=== PATIENT | female | born 1950 | race Caucasian/White ===

== ENCOUNTER → 2018-03-22 10:03 | Outpatient (CLI) | payer OTHER, SELFPAY | PROVIDERS: PCP Family Medicine; Visit Provider Family Medicine | DX: M85.852 Other specified disorders of bone density and structure, left thigh (principal); Z78.0 Asymptomatic menopausal state | CPT/HCPCS: 77080 ==

== ENCOUNTER → 2018-05-01 13:52 | Outpatient (CLI) | payer MEDICARE, OTHER, SELFPAY ==
--- NOTE | 2018-05-01 | DI.US.S_ITS ---
PROCEDURE: US PELVIC COMPLETE INDICATIONS: ADNEXAL FULLNESS TECHNIQUE: Real-time scanning was performed of the pelvic organs, with image documentation. Additional endovaginal scanning was necessary due to incomplete visualization of the adnexal and endometrial structures by transabdominal scanning. COMPARISON: None. FINDINGS: Transabdominal scanning: Limited scanning through the kidneys shows no hydronephrosis. No pathologic free abdominal or pelvic fluid. Endovaginal scanning: Uterus: Uterus is normal in size at 5.4 x 2.4 x 3.9 cm. The endometrium measures 3 mm in combined thickness. Ovaries: The right ovary surgically absent. Left ovary measures 2.1 x 0.9 x 0.8 cm. It demonstrates a normal appearance. No adnexal masses are seen. IMPRESSION: No imaging explanation is found for this patient's presenting history of adnexal fullness. Prior right oophorectomy. Dictated by: Carlos Messer M.D. on 05/01/2018 at 14:02 Approved by: Carlos Messer M.D. on 05/01/2018 at 14:04
== END ==
PROVIDERS: PCP Family Medicine; Visit Provider Family Medicine
DX: N85.8 Other specified noninflammatory disorders of uterus (principal); Z90.721 Acquired absence of ovaries, unilateral
CPT/HCPCS: 76830; 76856

== ENCOUNTER → 2018-10-09 15:02 | Outpatient (CLI) | payer MEDICARE, OTHER, SELFPAY ==
--- NOTE | 2018-10-09 | DI.MG.S_ITS ---
BILATERAL DIGITAL SCREENING MAMMOGRAM 3D/2D WITH CAD: 10/09/2018 CLINICAL: Routine screening. Family history of breast cancer. Comparison is made to exams dated: 09/13/2017 mammogram, 07/26/2016 mammogram, and 04/28/2015 mammogram - [facility]. The tissue of both breasts is heterogeneously dense. This may lower the sensitivity of mammography. Current study was also evaluated with a Computer Aided Detection (CAD) system. No significant masses, calcifications, or other findings are seen in either breast. There has been no significant interval change. IMPRESSION: NEGATIVE There is no mammographic evidence of malignancy. A 1 year screening mammogram is recommended. This exam was interpreted at Station ID: [id number]. NOTE: For mammograms, a report in lay terms will be sent to the patient. Approximately 15% of breast malignancies will not be visualized mammographically. In the management of a palpable breast mass, a negative mammogram must not discourage biopsy of a clinically suspicious lesion. Electronically Signed By: Jose butler/tono:10/09/2018 17:11:11 letter sent: Normal Exam ACR BI-RADS Category 1: Negative 3341F
== END ==
PROVIDERS: PCP Family Medicine; Visit Provider Family Medicine
DX: Z12.31 Encounter for screening mammogram for malignant neoplasm of breast (principal); Z80.3 Family history of malignant neoplasm of breast
CPT/HCPCS: 77063; 77067

== ENCOUNTER 2019-06-05 07:00 | Day surgery (SDC) | payer MEDICARE, OTHER, SELFPAY ==
[2019-06-05] MEDS: PROPARACAINE 0.5% OPHTH SOL 2 DROPS EYE-OP (07:40)
[2019-06-05] MEDS: CATARACT EYE COMPOUND (10 DROPS/SYRINGE) 3 DROPS EYE-OP (07:44)
[2019-06-05 07:46] VITALS: BP 138/84; PULSE 73; RESP 15; TEMP 36.2; BMI 23.6
--- NOTE | 2019-06-05 08:38 | PM.PREOP ---
Pre-operative Note Interval Note History & Physical reviewed/Exam performed by Physician: No Changes to H&P: No
--- NOTE | 2019-06-05 08:38 | PM.OP.1 ---
Operative Date/Time/Diagnoses Pre-op diagnosis: Nuclear cataract right eye Procedure & Clinicians Procedure: Cataract Surgery Same procedure as scheduled: Yes Surgeon: Glenn Panchal Anesthesia Type: MAC +/- and Sedation Operative Notes Procedure in detail: Patient brought to the operating suite. Tetracaine drops placed in the right eye. Patient was prepped and draped in sterile manner. Wire lid speculum was placed in the eye. Betadine drops were placed on the eye. This was irrigated. Lidocaine jelly was placed on the eye. A paracentesis port was created with a side-port blade. 0.1 mL 1% preservative free lidocaine was injected into the anterior chamber. The anterior chamber was deepened with viscoelastic. 2.6 mm keratome was used to create a temporal clear corneal incision. Cystotome and Utrata forceps were used to create continuous tear capsulorrhexis. Balanced salt solution was used to hydro dissect the nucleus. The phacoemulsification handpiece was inserted and the nucleus was removed using the stop and chop technique. The irrigation aspiration handpiece was inserted and the remaining cortex was removed. Anterior chamber was deepened with viscoelastic. An Hood ZCB00 intraocular lens with a power of 24.0 was injected into the capsular bag. Irrigation aspiration handpiece was inserted and the remaining viscoelastic was removed. Incision was hydrated with balanced salt solution and found to be leak free with pressure with Weck-Rosa sponges. 0.1 mL Vigamox injected anterior chamber. 0.3 mL Kenalog 10 mg was injected subconjunctivally. Lid speculum was removed. The patient left the operating room in excellent condition. Complications: none Post-operative Condition: stable Disposition: same day surgery
[2019-06-05] MEDS: LIDOCAINE JELLY 2% 5 ML 1 APPLIC TOP (08:56)
[2019-06-05] MEDS: CHONDROIDTIN/SOD HYALURONATE 1.05 ML SYRINGE INTRAOCULA (08:56)
[2019-06-05] MEDS: PHENYLEPHRINE/LIDOCAINE VIAL (OR) 0.2 ML EYE-OP (08:57)
[2019-06-05] MEDS: TETRACAINE 0.5% OPHTH DROPS 4 ML 2 DROPS EYE-OP (08:57)
[2019-06-05] MEDS: MOXIFLOXACIN INJ 5 MG/ML VIAL EYE-OP (08:57)
[2019-06-05] MEDS: BALANCED SALT IRRIG SOLN NO.2 500 ML, EPINEPHrine 1 MG IRR (08:58)
[2019-06-05] MEDS: TRIAMCINOLONE 50 MG/5 ML VIAL INJ (08:58)
[2019-06-05 09:11] VITALS: BP 146/81; PULSE 66; RESP 16; TEMP 36.4; O2SAT 96
== END 2019-06-05 09:23 | disposition home or self-care (01) ==
PROVIDERS: PCP Family Medicine; Visit Provider Ophthalmology
PROC: (CPT 66984; principal; 2019-06-05 08:45)
DX: H25.11 Age-related nuclear cataract, right eye (principal)
CPT/HCPCS: 66984; J0171; J2250; J3010; J3301

== ENCOUNTER 2019-06-12 06:27 | Day surgery (SDC) | payer MEDICARE, OTHER, SELFPAY ==
[2019-06-12 07:06] VITALS: BP 143/82; PULSE 68; RESP 16; TEMP 36.3; O2SAT 96; BMI 23.5
[2019-06-12] MEDS: PROPARACAINE 0.5% OPHTH SOL 2 DROPS EYE-OP (07:48)
[2019-06-12] MEDS: CATARACT EYE COMPOUND (10 DROPS/SYRINGE) 3 DROPS EYE-OP (07:49)
--- NOTE | 2019-06-12 08:04 | PM.PREOP ---
Pre-operative Note Interval Note History & Physical reviewed/Exam performed by Physician: No Changes to H&P: No
--- NOTE | 2019-06-12 08:04 | PM.OP.1 ---
Operative Date/Time/Diagnoses Pre-op diagnosis: Nuclear Cataract Left eye Post-op diagnosis: same Procedure & Clinicians Surgeon: Glenn Panchal Anesthesia Type: MAC +/- and Sedation Operative Notes Procedure in detail: Patient brought to the operating suite. Tetracaine drops placed in the left eye. Patient was prepped and draped in sterile manner. Wire lid speculum was placed in the eye. Betadine drops were placed on the eye. This was irrigated. Lidocaine jelly was placed on the eye. A paracentesis port was created with a side-port blade. 0.1 mL 1% preservative free lidocaine was injected into the anterior chamber. The anterior chamber was deepened with viscoelastic. 2.6 mm keratome was used to create a temporal clear corneal incision. Cystotome and Utrata forceps were used to create continuous tear capsulorrhexis. Balanced salt solution was used to hydro dissect the nucleus. The phacoemulsification handpiece was inserted and the nucleus was removed using the stop and chop technique. The irrigation aspiration handpiece was inserted and the remaining cortex was removed. Anterior chamber was deepened with viscoelastic. An Hood ZCB00 intraocular lens with a power of 24.0 was injected into the capsular bag. Irrigation aspiration handpiece was inserted and the remaining viscoelastic was removed. Incision was hydrated with balanced salt solution and found to be leak free with pressure with Weck-Rosa sponges. 0.1 mL Vigamox injected anterior chamber. 0.3 mL Kenalog 10 mg was injected subconjunctivally. Lid speculum was removed. The patient left the operating room in excellent condition. Complications: none Post-operative Condition: stable Disposition: same day surgery
[2019-06-12] MEDS: MOXIFLOXACIN INJ 5 MG/ML VIAL EYE-OP (08:20)
[2019-06-12] MEDS: PHENYLEPHRINE/LIDOCAINE VIAL (OR) 0.2 ML EYE-OP (08:20)
[2019-06-12] MEDS: TRIAMCINOLONE 50 MG/5 ML VIAL INJ (08:21)
[2019-06-12] MEDS: CHONDROIDTIN/SOD HYALURONATE 1.05 ML SYRINGE INTRAOCULA (08:21)
[2019-06-12] MEDS: LIDOCAINE JELLY 2% 5 ML 1 APPLIC TOP (08:21)
[2019-06-12] MEDS: BALANCED SALT IRRIG SOLN NO.2 500 ML, EPINEPHrine 1 MG IRR (08:21)
[2019-06-12] MEDS: TETRACAINE 0.5% OPHTH DROPS 4 ML 2 DROPS EYE-OP (08:22)
[2019-06-12 08:31] VITALS: BP 122/81; PULSE 64; RESP 15; TEMP 36.6; O2SAT 98
== END 2019-06-12 08:42 | disposition home or self-care (01) ==
PROVIDERS: PCP Family Medicine; Visit Provider Ophthalmology
PROC: (CPT 66984; principal; 2019-06-12 07:45)
DX: H25.12 Age-related nuclear cataract, left eye (principal); F32.9 Major depressive disorder, single episode, unspecified
CPT/HCPCS: 66984; J0171; J2250; J3010; J3301

== ENCOUNTER → 2020-01-11 09:43 | Outpatient (CLI) | payer MEDICARE, OTHER, SELFPAY ==
[2020-01-12 21:05] LABS: COVID19 Sendout Not Detected (Not Detect)
== END ==
PROVIDERS: PCP Family Medicine; Visit Provider Nurse Practitioner
DX: Z01.812 Encounter for preprocedural laboratory examination (principal)
CPT/HCPCS: 87635

== ENCOUNTER 2020-01-14 13:28 | Day surgery (SDC) | payer MEDICARE, OTHER, SELFPAY ==
--- NOTE | 2020-01-14 | PATH_ITS ---
[facility] Accession Number: [id number] . 01 Material submitted: . PART A: colon - ASCENDING COLON POLYP PART B: sigmoid colon - SIGMOID POLYP . 01 Clinical history: . A: ASCENDING COLON POLYP 2MM . 02 Diagnosis: A. Ascending Colon Polyp: Tubular adenoma. . B. Sigmoid Polyp: Hyperplastic polyp. MRV 01/16/2020 1001 Local . 02 Electronically signed: . Francia Tineo MD, Pathologist NPI- [id number] . 01 Gross description: . Part A: ASCENDING COLON POLYP: Received in formalin is 1 fragment(s) of downey, soft tissue measuring 0.4 x 0.2 x 0.1 cm submitted entirely in 1 cassette(s) Part B: SIGMOID POLYP: Received in formalin is 1 fragment(s) of downey, soft tissue measuring 0.3 x 0.3 x 0.2 cm submitted entirely in 1 cassette(s) /QBJ 01/15/2020 0719 Local . 02 Pathologist provided ICD-10: K63.5, Z12.11 . 02 CPT . 168144, 146399 Performed at: 01 [facility] [address] [facility], [place], [place] [id number] MD Danial Crane MD Phone: [phone] Performed at: [facility] [address] [place], [place] [id number] MD Ignacia Nevarez MD Phone: [phone]
--- NOTE | 2020-01-14 12:32 | PM.HP.1 ---
History of Present Illness History of Present Illness Date Patient Seen: 01/14/20 Chief complaint: Colonoscopy Narrative: 69 year old female comes in today for consideration of a screening colonoscopy. Last colonoscopy on 09/03/2013 indicative for history of polyps. Two colon polyps found at hepatic flexure and descending colon, pathology not available at time dictation. Prior colonoscopy on 07/07/07 significant for a hyperplastic polyp in the sigmoid colon. There have been no lower GI symptoms suggesting disease such as change in bowel habits, bleeding, abdominal pain or anemia. Patient does have a family history of colon cancer. Overall health issues have been stable, including no major cardiac events for at least 6 weeks. PCP: Dr. Leslie Past medical history: Hypertension Macrocytic anemia Osteopenia Hepatic hemangioma Allergic rhinitis Insomnia Depression/anxiety History of colon polyps Past surgical history: Tonsillectomy and adenoidectomy, 1965 Unilateral salpingo oophorectomy secondary to cyst, 1980 Family history: Colon cancer, breast cancer Social history: , retired. Patient History Family & Social History Social History: household members spouse Meds Home Medications and Allergies Home Medications Medication Instructions Recorded Confirmed Type escitalopram oxalate [Lexapro] 20 mg PO DAILY 06/05/19 01/14/20 History ibuprofen [Advil] 100 mg PO PRN PRN 06/05/19 01/14/20 History trazodone 25 mg PO BEDTIME PRN 06/05/19 01/14/20 History loratadine [Claritin] 10 mg PO DAILY PRN 01/14/20 01/14/20 History Allergies Allergy/AdvReac Type Severity Reaction Status Date / Time No Known Drug Allergies Allergy Verified 01/14/20 13:42 Review of Systems Review of Systems ROS: Yes All systems reviewed with the patient and are negative except as otherwise documented Exam Narrative Exam Narrative: GENERAL: Alert and oriented, appearing stated age and in no acute distress. HEENT: Head normocephalic/atraumatic. Pupils equal, round, and reactive to light and accomodation. Extraocular muscles intact. Tympanic membranes clear. Nasal mucosa moist, septum midline. Oral mucosa moist, no lesions. Neck soft and supple, no lymphadenopathy. LUNGS: Clear to ausculation bilaterally, no wheezes, rhonchi or rales. CV: Normal S1 and S2 with regular rate and rhythm, no audible murmurs, rubs or gallops. ABDOMEN: Soft, non-tender, non-distended, no organomegaly. Positive bowel sounds. EXTREMITIES: No clubbing, cyanosis, or edema. NEURO: Cranial nerves II through XII grossly intact, no focal deficits. PSYCH: Alert and oriented x 3. SKIN: No concerning lesions. Assessment & Plan Assessment & Plan narrative: 1. History of colon polyps 2. Family history of colon cancer 3. Screening for colon cancer Plan for colonoscopy. The nature and character of the procedure as well as anticipated results were discussed. The possibility of not completing the procedure was also discussed. Possible complications including aspiration pneumonia, bleeding, perforation and reaction to medications either for sedation or preparation and missed lesions were discussed. Questions were answered and proceeding to the colonoscopy was elected. Informed consent signed. I sincerely appreciate the referral allowing me to participate in this patient's care. Please contact me with any questions or concerns.
--- NOTE | 2020-01-14 12:38 | PM.OP.ENDO ---
Operative Date/Time/Diagnoses Date of procedure: 01/14/20 Pre-op diagnosis: 1. History of colon polyps 2. Family history of colon cancer 3. Screening for colon cancer Post-op diagnosis: other (1. Ascending polyp x1, 2 mm, removed with cold biopsy forceps and hemaclip placed x2 with excellent hemostasis, 2. Sigmoid polyp x1, 2 mm, removed with cold biopsy forceps) Procedure & Clinicians Study performed: Colonoscopy Indications: 1. History of colon polyps 2. Family history of colon cancer 3. Screening for colon cancer Surgeon: Dea Moore Procedure Notes SCOAP/Timeout: 2:49 p.m. Procedure in detail: ENDOSCOPIST: Dea Moore MD Sedation RN: Amrita Raya RN Sedation start time: 2:54 p.m. Sedation end time: 3:30 p.m. PROCEDURE: Colonoscopy with cold biopsy and hemoclip placement x2 INDICATIONS: 1. History of colon polyps 2. Family history of colon cancer 3. Screening for colon cancer MEDICATION: Levsin 0.125 mg sublingual, incremental doses of Versed and fentanyl until appropriate level sedation achieved. ASA CLASS: 2 CECAL WITHDRAWAL TIME: 17 minutes COMPLICATIONS: None. EXTENT OF PROCEDURE: Cecum. QUALITY OF PREP: Good with portions of liquid stool. PROCEDURE: Prior to insertion of the colonoscope, a digital rectal examination was accomplished with circumferential palpation of the distal rectal mucosa without significant findings being noted. The high-definition pediatric colonoscope was passed into the rectum in the usual fashion and advanced over to the cecum with difficulty due to tortuosity and redundant colon. The ileocecal valve, appendiceal stoma, and medial wall all could be inspected and no abnormalities were seen. ASCENDING COLON: As the colonoscope was withdrawn, care was taken to expose and inspect the haustral folds and a 2 mm polyp was removed with cold biopsy forceps. Hemoclip x2 placed with excellent hemostasis. HEPATIC FLEXURE: Normal no polyps, diverticula or other abnormalities. TRANSVERSE COLON: Normal no polyps, diverticula or other abnormalities. DESCENDING COLON: Normal no polyps, diverticula or other abnormalities. SIGMOID COLON: 2 mm polyp was seen and removed with cold biopsy forceps. Otherwise, normal, no polyps, diverticula or other abnormalities. RECTUM: Normal. J maneuver was produced. There was no significant perianal disease. The J maneuver was broken. The remainder of the rectum was inspected and there was no external hemorrhoid disease. The scope was withdrawn. IMPRESSION: 1. Ascending polyp x1, 2 mm, removed with cold biopsy forceps, hemoclip placed x2 with excellent hemostasis. 2. Sigmoid polyp x1, 2 mm, removed with cold biopsy forceps PLAN: 1. Follow-up in clinic status post pathology results. The possibility of a missed lesion including a malignancy has been discussed with the patient previously. Potential alarm symptoms have been discussed and should be reported immediately. Complications: none Post-procedure Recommendations: Will call with biopsy results Follow up: weeks (2) Disposition: PACU
[2020-01-14] MEDS: LACTATED RINGERS 1,000 ML 200 ML IV (13:41)
[2020-01-14] MEDS: HYOSCYAMINE 0.125 MG TABLET PO (13:41)
[2020-01-14 13:45] VITALS: BP 152/85; PULSE 74; RESP 16; TEMP 36; O2SAT 97; BMI 23.0
[2020-01-14] MEDS: MIDAZOLAM 5 MG/5 ML VIAL IV ×4 (14:50→15:01)
[2020-01-14] MEDS: fentaNYL 250 MCG/5 ML INJ IV ×3 (14:50→15:01)
[2020-01-14 15:41] VITALS: BP 135/80; PULSE 64; RESP 16; TEMP 37.1; O2SAT 97
[2020-01-14 15:47] VITALS: BP 141/74; PULSE 69; RESP 24; O2SAT 97
--- NOTE | 2020-01-14 15:47 | SUR.PHASEI ---
to PACU awake, oriented, drowsy. Turned to left side to help pass flatus. Juice given.
[2020-01-14 15:50] VITALS: BP 131/77; PULSE 67; RESP 17; O2SAT 97
[2020-01-14 15:58] VITALS: BP 120/75; PULSE 66; RESP 16; TEMP 36.7; O2SAT 96
== END 2020-01-14 16:07 | disposition home or self-care (01) ==
PROVIDERS: PCP Family Medicine; Referring Provider Student in an Organized Health Care Education/Training Program; Visit Provider Student in an Organized Health Care Education/Training Program
PROC: 0DJD8ZZ Inspection of Lower Intestinal Tract, Via Natural or Artificial Opening Endoscopic (ICD-10-PCS; CPT 45378; principal; 2020-01-14 14:30)
DX: Z12.11 Encounter for screening for malignant neoplasm of colon (principal); Z86.010 Personal history of colon polyps; Z80.0 Family history of malignant neoplasm of digestive organs; D12.2 Benign neoplasm of ascending colon
CPT/HCPCS: 45380; J2250; J3010

== ENCOUNTER → 2020-11-12 16:54 | Outpatient (CLI) | payer MEDICARE, OTHER, SELFPAY ==
--- NOTE | 2020-11-12 | DI.MG.S_ITS ---
BILATERAL DIGITAL SCREENING MAMMOGRAM 3D/2D WITH CAD: 11/12/2020 CLINICAL: Routine screening. Family history of breast cancer. Comparison is made to exams dated: 10/09/2018 mammogram, 09/13/2017 mammogram, and 07/26/2016 mammogram - [facility]. The tissue of both breasts is heterogeneously dense. This may lower the sensitivity of mammography. Current study was also evaluated with a Computer Aided Detection (CAD) system. No significant masses, calcifications, or other findings are seen in either breast. There has been no significant interval change. IMPRESSION: NEGATIVE There is no mammographic evidence of malignancy. A 1 year screening mammogram is recommended. This exam was interpreted at Station ID: [id number]. NOTE: For mammograms, a report in lay terms will be sent to the patient. Approximately 15% of breast malignancies will not be visualized mammographically. In the management of a palpable breast mass, a negative mammogram must not discourage biopsy of a clinically suspicious lesion. Electronically Signed By: Mike Turner acr/tono:11/12/2020 17:33:23 letter sent: Normal Exam ACR BI-RADS Category 1: Negative 3341F
== END ==
PROVIDERS: PCP Family Medicine; Referring Provider Family Medicine; Visit Provider Family Medicine
DX: Z12.31 Encounter for screening mammogram for malignant neoplasm of breast (principal); Z80.3 Family history of malignant neoplasm of breast
CPT/HCPCS: 77063; 77067

== ENCOUNTER → 2021-07-09 14:46 | Outpatient (CLI) | payer MEDICARE, OTHER, SELFPAY ==
--- NOTE | 2021-07-09 14:49 | DI.RAD.S_ITS ---
PROCEDURE: XR DEXA AXIAL SKELETON INDICATIONS: Other specified disorders of bone density and stru COMPARISON: [facility], CR, XR DEXA AXIAL SKELETON, 03/22/2018, 10:50. FINDINGS: This blank DEXA report has been sent in error by the PACS system. The correct and complete report will be forthcoming in 1-2 days. Thank you for your patience and understanding. Dictated by: Alexander Solis M.D. on 07/09/2021 at 16:53 Approved by: Alexander Solis M.D. on 07/20/2021 at 14:00
== END ==
PROVIDERS: PCP Family Medicine; Referring Provider Family Medicine; Visit Provider Family Medicine
DX: M85.89 Other specified disorders of bone density and structure, multiple sites (principal)
CPT/HCPCS: 77080

== ENCOUNTER → 2021-12-16 10:04 | Outpatient (CLI) | payer MEDICARE, OTHER, SELFPAY ==
--- NOTE | 2021-12-16 | DI.MG.S_ITS ---
BILATERAL DIGITAL SCREENING MAMMOGRAM 3D/2D WITH CAD: 12/16/2021 CLINICAL: Routine screening. Family history of breast cancer. Comparison is made to exams dated: 11/12/2020 mammogram, 10/09/2018 mammogram, and 09/13/2017 mammogram - [facility]. The tissue of both breasts is heterogeneously dense. This may lower the sensitivity of mammography. Current study was also evaluated with a Computer Aided Detection (CAD) system. No significant masses, calcifications, or other findings are seen in either breast. There has been no significant interval change. IMPRESSION: NEGATIVE There is no mammographic evidence of malignancy. A 1 year screening mammogram is recommended. This exam was interpreted at Station ID: [id number]. NOTE: For mammograms, a report in lay terms will be sent to the patient. Approximately 15% of breast malignancies will not be visualized mammographically. In the management of a palpable breast mass, a negative mammogram must not discourage biopsy of a clinically suspicious lesion. Electronically Signed By: Reggie amin/tono:12/16/2021 10:44:21 letter sent: Normal Exam ACR BI-RADS Category 1: Negative 3341F
== END ==
PROVIDERS: PCP Family Medicine; Referring Provider Family Medicine; Visit Provider Family Medicine
DX: Z12.31 Encounter for screening mammogram for malignant neoplasm of breast (principal); Z80.3 Family history of malignant neoplasm of breast
CPT/HCPCS: 77063; 77067

== ENCOUNTER → 2023-03-02 11:47 | Outpatient (CLI) | payer MEDICARE, OTHER, SELFPAY ==
--- NOTE | 2023-03-02 | DI.MG.S_ITS ---
BILATERAL DIGITAL SCREENING MAMMOGRAM 3D/2D WITH CAD: 03/02/2023 CLINICAL: Routine screening. Family history of breast cancer. Comparison is made to exams dated: 12/16/2021 mammogram, 11/12/2020 mammogram, and 10/09/2018 mammogram - [facility]. Both breasts are heterogeneously dense, which may obscure small masses (category c / 51-75% glandular tissue). Current study was also evaluated with a Computer Aided Detection (CAD) system. No significant masses, calcifications, or other findings are seen in either breast. There has been no significant interval change. IMPRESSION: NEGATIVE There is no mammographic evidence of malignancy. A 1 year screening mammogram is recommended. Based on the Tyrer Cuzick model (a risk assessment model) the patient's lifetime risk is 14.9% and her 10 year risk is 9.6%. According to the ACR, ACS, and NCCN guidelines, an annual breast MRI exam along with mammogram is recommended if the patient's lifetime risk is 20% or greater. This exam was interpreted at Station ID: [id number]. NOTE: For mammograms, a report in lay terms will be sent to the patient. Approximately 15% of breast malignancies will not be visualized mammographically. In the management of a palpable breast mass, a negative mammogram must not discourage biopsy of a clinically suspicious lesion. Electronically Signed By: Jose butler/tono:03/06/2023 14:15:48 letter sent: Normal Exam ACR BI-RADS Category 1: Negative 3341F
== END ==
PROVIDERS: PCP Family Medicine; Referring Provider Family Medicine; Visit Provider Family Medicine
DX: Z12.31 Encounter for screening mammogram for malignant neoplasm of breast (principal)
CPT/HCPCS: 77063; 77067

== ENCOUNTER → 2023-09-12 11:16 | Outpatient (CLI) | payer MEDICARE, OTHER, SELFPAY ==
--- NOTE | 2023-09-12 11:18 | DI.RAD.S_ITS ---
Bone Density Report Name: MARZENA SCHOFIELD Age: 72 Sex: Female Ethnicity: White Date of : 1950 Indication: osteopenia; Referring Provider: LEVAR MURRY Study: Bone densitometry was performed. Exam Date: September 12, 2023 Accession number: [id number] Bone Density: Region BMD T-score Z-score Classification AP Spine(L1, L2, L3) 0.845 -1.6 0.5 Osteopenia Femoral Neck (Left) 0.599 -2.3 -0.4 Osteopenia Total Hip (Left) 0.800 -1.2 0.4 Osteopenia Femoral Neck (Right) 0.614 -2.1 -0.3 Osteopenia Total Hip (Right) 0.770 -1.4 0.1 Osteopenia Total Hip Mean 0.785 -1.3 0.3 Osteopenia World Health Organization criteria for BMD impression classify patients as: Normal (T-score at or above -1.0), Osteopenia (T-score between -1.0 and -2.5), or Osteoporosis (T-score at or below -2.5). 10-year Fracture Risk(1): Major Osteoporotic Fracture 16% Hip Fracture 4.6% Reported Risk Factors: [place] (), Neck BMD=0.599, BMI=24.0, alcohol use (1) FRAX(R) Version 3.08. Fracture probability calculated for an untreated patient. Fracture probability may be lower if the patient has received treatment. Previous Exams: -- Region Exam Age BMD T-score BMD Change BMD Change Date g/cm2 vs Baseline vs Previous -- AP Spine (L1-L3) 09/12/2023 72 0.845 -1.6 -0.007 (-0.8%)# -0.184 (-17.9%)# 07/09/2021 70 1.029 0.1 0.177 (20.8%)* 0.043 (4.4%)* 03/22/2018 67 0.986 -0.3 0.134 (15.7%)* 0.064 (6.9%)* 12/23/2015 65 0.922 -0.9 0.070 (8.2%)* -0.050 (-5.1%)* 07/20/2013 62 0.972 -0.4 0.119 (14.0%)* 0.141 (16.9%)* 11/09/2010 59 0.831 -1.7 -0.021 (-2.5%) -0.021 (-2.5%) 07/19/2008 57 0.852 -1.5 Total Hip(Left) 09/12/2023 72 0.800 -1.2 -0.018 (-2.2%)# 0.002 (0.3%)# 07/09/2021 70 0.798 -1.2 -0.021 (-2.5%) -0.031 (-3.8%)* 03/22/2018 67 0.829 -0.9 0.010 (1.3%) -0.031 (-3.6%)* 12/23/2015 65 0.860 -0.7 0.042 (5.1%)* 0.046 (5.6%)* 07/20/2013 62 0.814 -1.0 -0.004 (-0.5%) -0.021 (-2.5%) 11/09/2010 59 0.835 -0.9 0.017 (2.0%) 0.017 (2.0%) 07/19/2008 57 0.819 -1.0 Total Hip(Right) 09/12/2023 72 0.770 -1.4 -0.051 (-6.2%)# -0.014 (-1.8%)# 07/09/2021 70 0.785 -1.3 -0.036 (-4.4%)* -0.056 (-6.6%)* 03/22/2018 67 0.840 -0.8 0.019 (2.3%) 0.034 (4.2%)* 12/23/2015 65 0.806 -1.1 -0.015 (-1.8%) -0.031 (-3.7%)* 07/20/2013 62 0.837 -0.9 0.016 (1.9%) -0.004 (-0.5%) 11/09/2010 59 0.841 -0.8 0.020 (2.4%) 0.020 (2.4%) 07/19/2008 57 0.821 -1.0 -- *Denotes significance at 95% confidence level, LSC for AP Spine = 0.022 g/cm2, LSC for Total Hip = 0.027 g/cm2 Rate of change results reflect vertebral levels common to all scans # Denotes dissimilar scan types or analysis methods Impression: The patient has low bone mass, based on the Left Femoral Neck T-score. The patient has an estimated ten-year risk of hip fracture of 4.6% and an estimated ten-year risk of major fracture of 16%, based on the WHO FRAX algorithm. The patient has risk factors, including: excessive alcohol use. No significant bone loss was observed. Discussion: BONE DENSITY IS LOW AT ONE OR MORE SKELETAL SITES. THE PATIENT'S BMD AND CLINICAL RISK FACTORS CONTRIBUTE TO THIS PATIENT'S INCREASED RISK OF FRACTURE. This patient's lowest T-score is low at one or more skeletal sites. It meets the World Health Organization's (WHO) criteria for low bone mass (T-score between -1.0 and -2.5). The patient's 10-year risk of hip fracture as calculated by FRAX exceeds the threshold where pharmacological therapy is recommended by the National Osteoporosis Foundation (NOF). However, all treatment decisions require clinical judgment and consideration of individual patient factors, including patient preferences, comorbidities, previous drug use, risk factors not captured in the FRAX model (e.g., frailty, falls, vitamin D deficiency, increased bone turnover, interval significant decline in bone density) and possible under or overestimation of fracture risk by FRAX. The patient should follow a healthful lifestyle (good nutrition with adequate calcium and vitamin D, and appropriate weight-bearing exercise). Follow-Up: Consider a repeat BMD and Vertebral Fracture Assessment (VFA) exam in 2 years or sooner if medically necessary, to reassess this patient's status. Reported by: CAMILA WHITE M.D. on 09/12/2023 11:41:00 AM.
== END ==
LOC: RAD 11:17
PROVIDERS: PCP Family Medicine; Referring Provider Family Medicine; Visit Provider Family Medicine
DX: Z78.0 Asymptomatic menopausal state (principal); M85.852 Other specified disorders of bone density and structure, left thigh
CPT/HCPCS: 77080

== ENCOUNTER 2023-09-24 19:38 | Emergency (ER) | payer MEDICARE, OTHER, SELFPAY ==
[2023-09-24 19:41] VITALS: BP 156/70; PULSE 75; RESP 18; TEMP 36.4; O2SAT 99; BMI 24.0
--- NOTE | 2023-09-24 19:42 | ED.FALL ---
HPI - Fall General Chief Complaint: Fall Stated Complaint: fell/head puncture wound Time Seen by Provider: 09/24/23 19:41 Source: patient Mode of arrival: Ambulatory Limitations: no limitations History of Present Illness HPI Narrative: 72-year-old female with history of hypertension, dyslipidemia and chronic alcohol use who presents with complaint of fall. Patient had a witnessed fall by her family they note that she is intoxicated this evening and had extra alcohol. She hit her on the side of a [place] countertop and they believe her arm on a cabinet or book shelf. There was no loss of consciousness reported. Patient has not been altered from what she was before. She does have a lack adjacent to her ear. And has quite a bit of swelling and bruising over the forearm. Patient states other than the bruising on her arm she feels fine. She denies headache, neck pain, no back pain, no chest pain or shortness of breath. She has not had any nausea or vomiting this evening. No loss of bowel or bladder control. She has been able to ambulate. Patient states she does take medication for blood pressure and cholesterol. She does not believe she takes any blood thinners. She is unsure of last tetanus, sister believes it was proximally 15 years ago. No known drug allergies. No prior surgeries. Denies regular tobacco use, drinks 3-5 alcoholic drinks daily, no recreational drugs. She is accompanied by her sister. Related Data Home Medications Medication Instructions Recorded Confirmed escitalopram oxalate 20 mg tablet 20 mg PO DAILY 06/05/19 01/14/20 (Lexapro) ibuprofen 100 mg tablet (Advil) 100 mg PO PRN PRN Pain, Mild 06/05/19 01/14/20 trazodone 50 mg tablet 25 mg PO BEDTIME PRN Sleep 06/05/19 01/14/20 loratadine 10 mg tablet (Claritin) 10 mg PO DAILY PRN allergies 01/14/20 01/14/20 Allergies Allergy/AdvReac Type Severity Reaction Status Date / Time No Known Drug Allergies Allergy Verified 01/14/20 13:42 Review of Systems Review of Systems ROS Unobtainable: All systems reviewed & are unremarkable except as noted in HPI and below Patient History Social History household members: spouse Smoking Status: Never smoker alcohol intake: current Smoking Status: Never smoker alcohol intake frequency: 0-2 drinks per day Substance Use Type: does not use Exam Narrative Exam Narrative: GEN: Patient appears in mild distress. HEAD: No evidence of trauma, no raccoon/Egan sign. NECK: Nontender, painless range of motion, trachea midline Positive Nexus criteria, this is negative line tenderness, distracting injury, altered mental status, neuro deficit, positive for recent EtOH. EYES: PERRLA, EOMI ENT: External inspection normal except for a laceration just anterior to the upper corner of the ear on the right, is proximally 1 cm slightly stellate does not gape unless there is traction,, trachea is midline, TM's are normal no hemotypanum, Nares are clear, no septal hematoma, no dental or oral injury, airway is normal and with normal occlusion, No bony tenderness RESP: Chest is nontender and has symmetric movement, no ecchymosis, breath sounds are normal no crackles, wheezes or rales CVS: Heart sounds are normal, no murmur noted, No JVD. ABG/GI: Nontender, soft, normal bowel sounds, no distention, no organomegaly, pelvic rock is negative NEURO: Oriented AOx3, neuro is grossly intact, sensation and motor is normal all 4 extremities moving, cranial nerves II through XII are intact, GCS is 15 PSYCH: Normal mood and affect SKIN: Intact, warm and dry, no crepitus and without decubitus BACK: No CVA tenderness, no vertebral tenderness, no step-off's, no crepitus EXT: Patient has not abrasion with ecchymosis and appears to be hematoma of the right forearm more proximal. Patient has full range of motion nontender to bony tenderness. 2+ radial pulse with cap refill less than 2 seconds in all 5 fingers. Hips are nontender, no pedal edema, normal color and temperature, normal range of motion of extremities with normal tendon exam, 2+ pulses in all four extremities Initial Vital Signs Initial Vital Signs: Vital Signs Temperature 97.5 F L 09/24/23 19:41 Pulse Rate 75 09/24/23 19:41 Respiratory Rate 18 09/24/23 19:41 Blood Pressure 156/70 H 09/24/23 19:41 Pulse Oximetry 99 09/24/23 19:41 Oxygen Delivery Method Room Air 09/24/23 19:41 Procedures Laceration Repair Laceration 1: Time of procedure: 21:08 Site: face Side (If applicable): right Size (cm): 1 Description: stellate, irregular and clean Depth: simple, single layer Local Anesthetic: lidocaine 2% Amount of anesthesia used (mL): 2 Pre-repair: wound explored, irrigated extensively and deep structures intact Skin layer closed with: vicryl Skin layer suture size: 5-0 Number of sutures: 5 Technique: simple, interrupted Course Orders Ordered: ED Orders 09/24/23 19:50 XR forearm RT 2V Stat 09/24/23 19:52 CT cervical spine wo con Stat CT head/brain wo con Stat Discontinued Medications Diphtheria/Tetanus/Acell Pertussis (Tet,Diph,Pertuss(Acell),Vac/Pf 0.5 Ml Syringe) 0.5 ml IM .ONCE ONE Stop: 09/24/23 20:31 Last Admin: 09/24/23 20:48 Dose: 0.5 ml Documented By: KD Vital Signs Vital signs: Vital Signs - 8 hr 09/24/23 19:41 09/24/23 21:22 Temperature 97.5 F L Pulse Rate 75 72 Respiratory Rate 18 18 Blood Pressure 156/70 H 110/57 L Pulse Oximetry 99 98 Oxygen Delivery Method Room Air Room Air MDM - Fall Imaging Data CT scan - head: Radiologist's Impression: Jayda Avendano??72??F??1950 ? Allergy/Adv: No Known Drug Allergies Close Head CT (Signed) Ray Michel - 09/24/[address] (Signed) Ray Michel - 09/24/23 Forearm X-Ray (Signed) Ray Michel - 09/24/23 Bone Densitometry (Signed) Reggie Emery - 09/12/23 Mammogram Screening (Signed) Jose Ott - 03/02/23 Mammogram Screening (Signed) Reggie Emery - 12/16/21 Bone Densitometry (Signed) Alexander Solis - 07/09/21 Mammogram Screening (Signed) Mike Turner - 11/12/20 Telemetry Strips 01/14/20 Mammogram Screening (Signed) Jose Ott - 10/09/18 Pelvis Ultrasound (Signed) Carlos Messer - 11/05/18 Launch?Image [address] [address] [address] Scan Report Signed Patient: Jayda Avendano MR#: [id number] : 1950 Acct:[id number] Age/Sex: 72 / F Date of Service: 09/24/23 Loc: ED Accession Number: [id number] Procedure: CT head/brain wo con Ordering Provider: Winsome Cid D.O. PROCEDURE: CT HEAD/BRAIN WO CON INDICATIONS: fall/hit head TECHNIQUE: Noncontrast 4.5 mm thick angled axial sections acquired from the foramen magnum to the vertex, with coronal and sagittal reformats. For radiation dose reduction, the following was used: automated exposure control, adjustment of mA and/or kV according to patient size. COMPARISON: None. FINDINGS: Image quality: Diagnostic. CSF spaces: Basal cisterns are patent. No extra-axial fluid collections. Ventricles are normal in size and shape. Brain: No midline shift. No intracranial masses or hemorrhage. Stewart-white matter interface is normal. Skull and face: Calvarium and visualized facial bones are intact, without suspicious lesions. Sinuses: Visualized sinuses and mastoids are clear. IMPRESSION: No acute intracranial pathology. Dictated by: Ray Michel M.D. on 09/24/2023 at 20:49 Approved by: Ray Michel M.D. on 09/24/2023 at 20:50 CT - cervical spine: Radiologist's Impression: [address] [address] [address] Scan Report Signed Patient: Jayda Avendano MR#: [id number] : 1950 Acct:[id number] Age/Sex: 72 / F Date of Service: 09/24/23 Loc: ED Accession Number: [id number] Procedure: CT cervical spine wo con Ordering Provider: Winsome Cid D.O. PROCEDURE: CT CERVICAL SPINE WO CON INDICATIONS: fall/hit head TECHNIQUE: Noncontrast 3 mm thick sections acquired from the skull base to the T4 level. Sagittal and coronal reformats were then constructed. For radiation dose reduction, the following was used: automated exposure control, adjustment of mA and/or kV according to patient size. COMPARISON: None. FINDINGS: Image quality: Excellent. Bones: No fractures or dislocations. Visualized superior ribs are intact. Soft tissues: Prevertebral soft tissues are normal in thickness. No paravertebral hematomas. No apical pneumothoraces. Note is made of a 1 cm mildly spiculated lung mass laterally at the left upper lobe, seen on axial series 2, image 75 and best seen on coronal re-formation imaging series 4, image 28. IMPRESSION: There is an unexpected finding of mildly spiculated lung mass measuring 1 cm in maximal dimension, at the imaging margin fortunately included on the field of view for this spine study. This is a highly suspicious finding for representing early malignancy. Follow-up noncontrast CT scanning is recommended, electively. The patient apparently is intoxicated and best imaging for this small lesion would be obtained through CT scanning during breath holding which may not be feasible at this time clinically. No trauma found. Dictated by: Ray Michel M.D. on 09/24/2023 at 20:50 Approved by: Ray Michel M.D. on 09/24/2023 at 20:55 Extremity x-ray #1: Radiologist's Impression: Close Head CT 09/24/[address] 09/24/23 Forearm X-Ray (Signed) Ray Michel - 09/24/23 Bone Densitometry (Signed) Reggie Emery - 09/12/23 Mammogram Screening (Signed) Jose Ott - 03/02/23 Mammogram Screening (Signed) Reggie Emery - 12/16/21 Bone Densitometry (Signed) Alexander Solis - 07/09/21 Mammogram Screening (Signed) Mike Turner - 11/12/20 Telemetry Strips 01/14/20 Mammogram Screening (Signed) Jose Ott - 10/09/18 Pelvis Ultrasound (Signed) Carlos Messer - 05/01/18 Launch?[address] [address] XRay Report Signed Patient: Jayda Avendano MR#: [id number] : 1950 Acct:[id number] Age/Sex: 72 / F Date of Service: 09/24/23 Loc: ED Accession Number: [id number] Procedure: XR forearm RT 2V Ordering Provider: Winsome Cid D.O. PROCEDURE: XR FOREARM RT 2V INDICATIONS: fall/swelling/bruising TECHNIQUE: 2 views of the forearm were acquired. COMPARISON: None. FINDINGS: Bones: No fractures or dislocations. No suspicious bony lesions. Soft tissues: No suspicious soft tissue calcifications or masses. There is focal soft tissue swelling at approximately the junction of the proximal and middle thirds of the soft tissues of the right forearm. This presumably represents sequela of trauma and possibly a hematoma. IMPRESSION: Focal soft tissue swelling as discussed without underlying fracture or foreign body. Dictated by: Ray Michel M.D. on 09/24/2023 at 20:10 Approved by: Ray Michel M.D. on 09/24/2023 at 20:11 [facility] Narrative Medical decision making narrative: 72-year-old female presents with complaint of witnessed fall while intoxicated. Patient did not hit her head on a [place] countertop. She has a small laceration adjacent to the ear which was repaired. Tetanus was updated. Patient had head CT and C-spine imaging obtained she was intoxicated although she has not on any anticoagulants. Showed no acute traumatic changes there was 1 cm spiculated mass on the cervical spine CT on the left lung. This was shared with patient and family and discussed needs follow-up with dedicated imaging. Discussed return precautions with patient and family. Patient felt appropriate for discharge home with family. Discharge Plan Departure Patient Disposition: Home Clinical Impression: Laceration of face, Hematoma of right forearm, Lung mass Instructions: Closed Head Injury Activity Restrictions/Additional Instructions: Your imaging found a mildly spiculated lung mass measuring 1 cm on the left it is recommended that you have noncontrast CT of the chest for further evaluation. Call your physician this week to set this up. You have absorbable sutures, they should not require removal but if they are still present at 7 days please follow up to have them removed. Wound Care: Keep wound(s) clean and dry. Wash daily with soap and water only. Do not use over the counter products (alcohol or peroxide)on the wounds unless instructed by a physician. If wound condition worsens (increased/expanding redness, developing fluid blisters, or worsening pain), either contact your doctor for an urgent re-assessment , or return to the Emergency Department. Return to the Emergency Department for any new or worsening symptoms. Return if fever greater than 100.4 Fahrenheit, increased swelling, increasing pain or worsening symptoms such as increased discharge or spreading redness, severe headaches, new neck or back pain, persistent vomiting, new numbness tingling or weakness or other new or concerning changes. Prescriptions: No Action trazodone 50 mg Tablet 25 mg PO BEDTIME PRN (Reason: Sleep) escitalopram oxalate [Lexapro] 20 mg Tablet 20 mg PO DAILY ibuprofen [Advil] 100 mg Tablet 100 mg PO PRN PRN (Reason: Pain, Mild) loratadine [Claritin] 10 mg Tablet 10 mg PO DAILY PRN (Reason: allergies) Referrals: Elina Leslie MD [Primary Care Provider] - Stand Alone Forms: Patient Portal/API
--- NOTE | 2023-09-24 19:50 | DI.RAD.S_ITS ---
PROCEDURE: XR FOREARM RT 2V INDICATIONS: fall/swelling/bruising TECHNIQUE: 2 views of the forearm were acquired. COMPARISON: None. FINDINGS: Bones: No fractures or dislocations. No suspicious bony lesions. Soft tissues: No suspicious soft tissue calcifications or masses. There is focal soft tissue swelling at approximately the junction of the proximal and middle thirds of the soft tissues of the right forearm. This presumably represents sequela of trauma and possibly a hematoma. IMPRESSION: Focal soft tissue swelling as discussed without underlying fracture or foreign body. Dictated by: Ray Michel M.D. on 09/24/2023 at 20:10 Approved by: Ray Michle M.D. on 09/24/2023 at 20:11
--- NOTE | 2023-09-24 19:52 | DI.CT.S_ITS ---
PROCEDURE: CT HEAD/BRAIN WO CON INDICATIONS: fall/hit head TECHNIQUE: Noncontrast 4.5 mm thick angled axial sections acquired from the foramen magnum to the vertex, with coronal and sagittal reformats. For radiation dose reduction, the following was used: automated exposure control, adjustment of mA and/or kV according to patient size. COMPARISON: None. FINDINGS: Image quality: Diagnostic. CSF spaces: Basal cisterns are patent. No extra-axial fluid collections. Ventricles are normal in size and shape. Brain: No midline shift. No intracranial masses or hemorrhage. Stewart-white matter interface is normal. Skull and face: Calvarium and visualized facial bones are intact, without suspicious lesions. Sinuses: Visualized sinuses and mastoids are clear. IMPRESSION: No acute intracranial pathology. Dictated by: Ray Michel M.D. on 09/24/2023 at 20:49 Approved by: Ray Michle M.D. on 09/24/2023 at 20:50
--- NOTE | 2023-09-24 19:52 | DI.CT.S_ITS ---
PROCEDURE: CT CERVICAL SPINE WO CON INDICATIONS: fall/hit head TECHNIQUE: Noncontrast 3 mm thick sections acquired from the skull base to the T4 level. Sagittal and coronal reformats were then constructed. For radiation dose reduction, the following was used: automated exposure control, adjustment of mA and/or kV according to patient size. COMPARISON: None. FINDINGS: Image quality: Excellent. Bones: No fractures or dislocations. Visualized superior ribs are intact. Soft tissues: Prevertebral soft tissues are normal in thickness. No paravertebral hematomas. No apical pneumothoraces. Note is made of a 1 cm mildly spiculated lung mass laterally at the left upper lobe, seen on axial series 2, image 75 and best seen on coronal re-formation imaging series 4, image 28. IMPRESSION: There is an unexpected finding of mildly spiculated lung mass measuring 1 cm in maximal dimension, at the imaging margin fortunately included on the field of view for this spine study. This is a highly suspicious finding for representing early malignancy. Follow-up noncontrast CT scanning is recommended, electively. The patient apparently is intoxicated and best imaging for this small lesion would be obtained through CT scanning during breath holding which may not be feasible at this time clinically. No trauma found. Dictated by: Ray Michel M.D. on 09/24/2023 at 20:50 Approved by: Ray Michel M.D. on 09/24/2023 at 20:55
[2023-09-24] MEDS: TET,DIPH,PERTUSS(ACELL),VAC/PF 0.5 ML SYRINGE IM (20:48)
[2023-09-24 21:22] VITALS: BP 110/57; PULSE 72; RESP 18; O2SAT 98
== END 2023-09-24 21:23 | disposition home or self-care (01) ==
PROVIDERS: Emergency Provider Emergency Medicine; PCP Family Medicine
DX: S01.81XA Laceration without foreign body of other part of head, initial encounter (principal); S50.11XA Contusion of right forearm, initial encounter; R91.8 Other nonspecific abnormal finding of lung field; W18.09XA Striking against other object with subsequent fall, initial encounter; Z23 Encounter for immunization
CPT/HCPCS: 12011; 70450; 72125; 73090; 90471; 99283; 99284; 90715

== ENCOUNTER → 2023-10-03 09:18 | Outpatient (CLI) | payer MEDICARE, OTHER, SELFPAY ==
--- NOTE | 2023-10-03 | DI.CT.S_ITS ---
PROCEDURE: CT CHEST W CON INDICATIONS: LEFT LUNG MASS TECHNIQUE: After the administration of intravenous contrast, 5 mm thick sections acquired from the pulmonary apices to the posterior costophrenic angles. 1 mm axial lung, 5 mm thick coronal and sagittal reformats and 7 mm axial MIP were acquired. For radiation dose reduction, the following was used: automated exposure control, adjustment of mA and/or kV according to patient size. COMPARISON: None. FINDINGS: Image quality: Diagnostic. Lower Neck: No enlarged lymph nodes. Thyroid: No thyroid nodules which require sonographic follow up, per consensus guidelines. Axillae: No enlarged lymph nodes. Chest Wall: Unremarkable. Bones: Unremarkable. Lungs and Pleura: No pneumothorax or pleural effusions. 7 x 8 millimeter solid nodule in the left upper lobe (series 3, image 83). Heart: Heart size is enlarged. No pericardial effusion. Three-vessel coronary calcifications. Thoracic Vessels: The aorta and pulmonary arteries demonstrate normal size. Mediastinum and Rose: No enlarged lymph nodes. Esophagus: No wall thickening. Moderate hiatal hernia. Upper Abdomen: Visualized upper abdomen solid organs and bowel loops appear normal. IMPRESSION: 7-8 millimeters solid nodule in the left upper lobe. Recommend six-month follow-up per Fleischner society guidelines. Moderate to marked coronary artery calcifications for age. Correlate with risk factors and advise counseling. Dictated by: Moreno Roblero M.D. on 10/03/2023 at 11:26 Approved by: Moreno Roblero M.D. on 10/03/2023 at 11:29
== END ==
LOC: CT 09:19
PROVIDERS: PCP Family Medicine; Referring Provider Family Medicine; Visit Provider Family Medicine
DX: I25.10 Atherosclerotic heart disease of native coronary artery without angina pectoris (principal); R91.1 Solitary pulmonary nodule; I51.7 Cardiomegaly; K44.9 Diaphragmatic hernia without obstruction or gangrene
CPT/HCPCS: 71260; Q9967

== ENCOUNTER → 2023-10-21 07:02 | Outpatient (CLI) | payer MEDICARE, OTHER, SELFPAY ==
--- NOTE | 2023-10-21 07:05 | DI.US.S_ITS ---
PROCEDURE: US THYROID INDICATIONS: THYROID NODULE TECHNIQUE: Real-time scanning was performed of the thyroid gland, with image documentation. COMPARISON: None. FINDINGS: Thyroid: Right lobe measures 4.0 x 1.5 x 1.4 cm. Left lobe measures 4.2 x 1.1 x 1.2 cm. Isthmus is 3 cm thick. Echotexture is homogeneous. No focal lesions are identified meeting criteria for follow-up imaging or FNA. IMPRESSION: No focal lesions identified meeting criteria for follow-up imaging or FNA. ACR TI-RADS definitions and recommendations: TI-RADS 1 (benign): 0 points. FNA not needed. TI-RADS 2 (not suspicious): 2 points. FNA not needed. TI-RADS 3 (mildly suspicious): 3 points. * FNA if 2.5 cm or larger, follow up if 1.5 cm or larger (at 1, 3, and 5 years). TI-RADS 4 (moderately suspicious): 4-6 points. * FNA if 1.5 cm or larger, follow up if 1 cm or larger (at 1, 2, 3, and 5 years). TI-RADS 5 (highly suspicious): 7 points or more. * FNA if 1 cm or larger, follow up if 0.5 cm or larger (every year for 5 years). Dictated by: Jessa Peña M.D. on 10/21/2023 at 14:07 Approved by: Jessa Peña M.D. on 10/21/2023 at 14:11
--- NOTE | 2023-10-21 07:05 | DI.ECHO.S_ITS ---
[facility] : : [address] : : [place] : : [id number] : : Phone: [phone] Echocardiogram Report + + :Name: MARZENA SCHOFIELD Study Date: 10/21/2023 Height: 64 in : :[facility] ReadingLocation: Weight: 140 lb : : Gender: Female BSA: 1.7 m2 : :: 1950 Age: 72 yrs BP: 141/92 mmHg: :Reason For Study: CARDIOMEGALY : :Ordering Physician: LOVELY, : :LEVAR Performed By: Joann Dodd : :Referring: LEVAR MURRY : + + Interpretation Summary The left ventricle is normal in size and wall thickness. Left ventricular systolic function appears normal without focal wall motion abnormalities. The ejection fraction is estimated to be 55-60%. The right ventricle is borderline dilated. The right ventricular systolic function is normal. The right ventricular systolic pressure is estimated to be at least 29 mmHg based on an estimated right atrial pressure of 3 mm Hg. The left atrial size is normal. There is borderline mitral valve prolapse. There is prolapse of the posterior mitral valve leaflet(s). There is mild mitral regurgitation. There is no other significant valvular heart disease. The ascending aorta is mildly enlarged. Procedure: A two-dimensional transthoracic echocardiogram with color flow and Doppler was performed. The study quality was technically adequate. There is no prior echocardiogram noted for this patient. The patient was in sinus rhythm with heart rates between 65-70 bpm during the exam. Left Ventricle: The left ventricle is normal in size and wall thickness. Left ventricular systolic function appears normal without focal wall motion abnormalities. The ejection fraction is estimated to be 55-60%. Right Ventricle: The right ventricle is borderline dilated. The right ventricular systolic function is normal. Atria: The left atrial size is normal. Right atrial size is normal. There is no Doppler evidence for an interatrial shunt. The interatrial septum bows toward right atrium consistent with elevated left atrial pressure. Mitral Valve: The mitral valve is normal in structure and function. There is borderline mitral valve prolapse. There is prolapse of the posterior mitral valve leaflet(s). There is mild mitral regurgitation. Aortic Valve: The aortic valve is trileaflet. The aortic valve opens well. There is no aortic valve stenosis. No aortic regurgitation is present. Tricuspid Valve: The tricuspid valve is normal in structure and function. There is mild tricuspid regurgitation. The right ventricular systolic pressure is estimated to be at least 29 mmHg based on an estimated right atrial pressure of 3 mm Hg. Pulmonic Valve: The pulmonic valve leaflets are thin and pliable; valve motion is normal. There is mild pulmonic regurgitation. There is no other significant valvular heart disease. Great Vessels: The aortic root is normal size. The ascending aorta is mildly enlarged. The IVC is of normal diameter and collapses greater than 50% with a sniff. This suggests a low right atrial pressure of 3 mm Hg. Pericardium/ Pleura There is no pericardial effusion. There is no pleural effusion. MMode/2D Measurements & Calculations LVIDd: 4.8 cm LVOT diam: 2.0 cm LVIDs: 3.5 cm Ao root diam: 3.4 cm FS: 26.8 % asc Aorta Diam: 3.6 cm IVSd: 0.77 cm Ao Arch Diam (Prox Trans): 2.9 cm LVPWd: 0.76 cm LV adkins. diameter/BSA (cm/m^2): 2.9 LV sys. diameter/BSA (cm/m^2): 2.1 LA A2 area: 18.5 cm2 RA long axis: 5.3 cm LA A4 area: 19.4 cm2 RA area: 16.1 cm2 LA length (vol): 5.6 cm RA vol: 41.7 ml LA vol: 54.7 ml RA : 24.8 ml/m2 LA vol index: 32.5 ml/m2 IVC diam: 1.3 cm RVD1 (basal): 4.0 cm RVD2 (mid): 2.9 cm TAPSE: 1.8 cm Doppler Measurements & Calculations Ao V2 max: 139.6 cm/sec LVOT Max Flash: 106.1 cm/sec Ao V2 mean: 102.9 cm/sec LV V1 max P.5 mmHg Ao max P.8 mmHg LV V1 VTI: 24.9 cm Ao mean P.6 mmHg NITHYA(I,D): 2.4 cm2 Ao V2 VTI: 33.3 cm NITHYA(V,D): 2.4 cm2 sev ratio: 0.75 NITHYA indexed to BSA (cm^2/m^2): 1.4 MV E max flash: 104.5 cm/sec TR max flash: 255.1 cm/sec MV A max flash: 111.5 cm/sec TR max P.0 mmHg MV E/A: 0.94 PA V2 max: 75.2 cm/sec Med Peak E' Flash: 6.5 cm/sec PA V2 mean: 56.1 cm/sec E/E' med: 16.0 PA mean P.4 mmHg Lat Peak E' Flash: 6.3 cm/sec PA pr(Accel): 24.2 mmHg E/E' lat: 16.5 E/e' average: 16.3 MV dec time: 0.24 sec SV(LVOT): 79.2 ml Reading Physician:08:16 AM
== END ==
LOC: ECHO 07:03
PROVIDERS: PCP Family Medicine; Referring Provider Family Medicine; Visit Provider Family Medicine
DX: I77.89 Other specified disorders of arteries and arterioles (principal); E04.1 Nontoxic single thyroid nodule; I08.1 Rheumatic disorders of both mitral and tricuspid valves
CPT/HCPCS: 76536; 93306

== ENCOUNTER 2023-12-12 11:39 | Emergency (ER) | payer MEDICARE, OTHER, SELFPAY ==
[2023-12-12 11:45] VITALS: BP 160/87; PULSE 75; RESP 17; TEMP 36.9; O2SAT 98; BMI 24.0
--- NOTE | 2023-12-12 11:48 | DI.RAD.S_ITS ---
PROCEDURE: XR ANKLE LT MIN 3V INDICATIONS: injury TECHNIQUE: 3 views of the ankle were acquired. COMPARISON: None. FINDINGS: Bones: There is a minimally displaced distal fibular fracture. No other acute fracture or dislocation. Moderate degenerative changes are present at the tibiotalar and fibulotalar joints. Soft tissues: There is marked lateral malleolar soft tissue swelling.. Achilles tendon appears normal. IMPRESSION: Minimally displaced distal fibular fracture and lateral malleolar soft tissue swelling. Dictated by: Charley Matthew M.D. on 12/12/2023 at 12:47 Approved by: Charley Matthew M.D. on 12/12/2023 at 12:49
[2023-12-12] MEDS: IBUPROFEN 400 MG TABLET 800 MG PO (13:32)
--- NOTE | 2023-12-12 13:44 | ED_ITS ---
HPI - Extremity Injury (Lower) <Fidel Wolff PA-C - Last Filed: 12/12/23 14:09> General Chief Complaint: Extremity Injury, Lower Stated Complaint: left ankle pain Time Seen by Provider: 12/12/23 11:50 Source: patient Mode of arrival: Ambulatory History of Present Illness HPI Narrative: 72-year-old female presents to the ED for a left ankle injury sustained 2 days prior to arrival. Patient states that she accidentally misstepped on her garage steps, causing her left ankle to twist. Patient states she heard a cracking noise and has had swelling and pain in the left ankle since then. Patient has not been able to fully bear weight on that foot and walk. Patient has been icing and elevating the injury. Patient states that the swelling has improved, however she is still unable to bear weight. No numbness, tingling, weakness. Related Data Home Medications Medication Instructions Recorded Confirmed escitalopram oxalate 20 mg tablet 20 mg PO DAILY 06/05/19 01/14/20 (Lexapro) ibuprofen 100 mg tablet (Advil) 100 mg PO PRN PRN Pain, Mild 06/05/19 01/14/20 trazodone 50 mg tablet 25 mg PO BEDTIME PRN Sleep 06/05/19 01/14/20 loratadine 10 mg tablet (Claritin) 10 mg PO DAILY PRN allergies 01/14/20 01/14/20 Allergies Allergy/AdvReac Type Severity Reaction Status Date / Time No Known Drug Allergies Allergy Verified 12/12/23 11:47 Review of Systems <Fidel Wolff PA-C - Last Filed: 12/12/23 14:09> Constitutional Constitutional: Denies chills, Denies fatigue, Denies fever(s), Denies frequent falls, Denies lethargy and Denies weakness Eyes Eyes: Denies change in vision, Denies eye discharge, Denies irritation and Denies loss of vision ENT Ears, Nose, Mouth, and Throat: Denies change in voice, Denies dizziness, Denies neck pain, Denies sore throat and Denies throat swelling Cardiovascular Cardiovascular: Denies chest pain, Denies irregular heart rhythm, Denies lightheadedness, Denies palpitations, Denies dyspnea, Denies dyspnea on exertion and Denies orthopnea Respiratory Respiratory: Denies cough, Denies dyspnea, Denies dyspnea on exertion and Denies wheezing Gastrointestinal Gastrointestinal: Denies abdominal pain, Denies change in bowel habits, Denies diarrhea, Denies nausea and Denies vomiting Musculoskeletal Musculoskeletal: Denies neck pain and Denies numbness Comments: Left ankle swelling, pain, unable to bear weight Integumentary/Breasts Skin/Breast: Denies pruritus, Denies erythema, Denies rash and Denies wounds Neurologic Neurologic: Denies behavioral changes, Denies confusion, Denies dizziness, Denies frequent falls, Denies loss of vision, Denies numbness and Denies weakness Psychiatric Psychiatric: Denies anxiety, Denies behavioral changes, Denies confusion, Denies depression, Denies homicidal ideation and Denies suicidal ideation Endocrine Endocrine: Denies fatigue, Denies flushing and Denies palpitations Hematologic/Lymphatic Hematologic/Lymphatic: Denies easy bruising Allergic/Immunologic Allergic/Immunologic: Denies urticaria, Denies throat swelling and Denies wheezing Patient History <Fidel Wolff PA-C - Last Filed: 12/12/23 14:09> Social History household members: spouse Smoking Status: Never smoker alcohol intake: current Smoking Status: Never smoker alcohol intake frequency: 0-2 drinks per day Substance Use Type: does not use Exam <KEISHA Grant Last Filed: 12/12/23 14:09> Narrative Exam Narrative: Const General:?cooperative, healthy appearing and comfortable [facility] Head:?normal to inspection Ears:?hearing grossly normal bilaterally Nose:?external nose normal Face and sinus:?normal facial exam and sinuses nontender Mouth:?oral mucosae normal Throat:?posterior oropharynx normal Eyes General:?appearance normal, both eyes and all related structures Neck Neck:?normal visual inspection and no lymphadenopathy noted Resp Effort & Inspection:?normal respiratory effort Auscultation:?clear to auscultation bilaterally Cardio Rate:?regular rate Rhythm:?regular rhythm Musculoskeletal Lateral aspect of left ankle appears swollen, mild bruising. Tender to touch. Sensation is intact. Patient unable to bear weight and walk. Neurovascularly intact Neuro General:?patient alert, patient awake and patient oriented x3 Initial Vital Signs Initial Vital Signs: Vital Signs Temperature 98.5 F 12/12/23 11:45 Pulse Rate 75 12/12/23 11:45 Respiratory Rate 12/12/23 11:45 Blood Pressure 160/87 H 12/12/23 11:45 Pulse Oximetry 98 12/12/23 11:45 Oxygen Delivery Method Room Air 12/12/23 11:45 <Garrison Smart MD - Last Filed: 12/16/23 11:42> Initial Vital Signs Initial Vital Signs: Vital Signs Temperature 98.5 F 12/12/23 11:45 Pulse Rate 75 12/12/23 11:45 Respiratory Rate 17 12/12/23 11:45 Blood Pressure 160/87 H 12/12/23 11:45 Pulse Oximetry 98 12/12/23 11:45 Oxygen Delivery Method Room Air 12/12/23 11:45 Course <Fidel Wolff PA-C - Last Filed: 12/12/23 14:09> Orders Ordered: Discontinued Medications Ibuprofen (Ibuprofen 400 Mg Tablet) 800 mg PO NOW ONE Stop: 12/12/23 13:13 Last Admin: 12/12/23 13:32 Dose: 800 mg Documented By: RL Vital Signs Vital signs: Vital Signs - 8 hr 12/12/23 11:45 Temperature 98.5 F Pulse Rate 75 Respiratory Rate 17 Blood Pressure 160/87 H Pulse Oximetry 98 Oxygen Delivery Method Room Air <Garrison Smart MD - Last Filed: 12/16/23 11:42> Orders Ordered: Discontinued Medications Ibuprofen (Ibuprofen 400 Mg Tablet) 800 mg PO NOW ONE Stop: 12/12/23 13:13 Last Admin: 12/12/23 13:32 Dose: 800 mg Documented By: RL Vital Signs Vital signs: Vital Signs - 8 hr 12/12/23 11:45 Temperature 98.5 F Pulse Rate 75 Respiratory Rate 17 Blood Pressure 160/87 H Pulse Oximetry 98 Oxygen Delivery Method Room Air MDM - Extremity Injury (Lower) <Fidel Wolff PA-C - Last Filed: 12/12/23 14:09> MDM Narrative Medical decision making narrative: 72-year-old female presents to the ED for a left ankle injury sustained 2 days prior to arrival. Concern for fracture/dislocation versus musculoskeletal sprain/strain versus other. Obtained x-ray which shows a minimally displaced distal fibular fracture along with lateral malleolar soft tissue swelling. Patient fitted with a splint. Recommend follow-up with ortho as soon as possible. Recommend ibuprofen, Tylenol for pain. ED return precautions discussed with patient. Patient verbalized understanding. Medical records reviewed: Yes Discharge Plan Departure Patient Disposition: Home Clinical Impression: Fibula fracture Qualifiers: Encounter type: initial encounter Fibula location: distal Fracture type: closed Fracture morphology: unspecified fracture morphology Laterality: left Qualified Code(s): S82.832A - Other fracture of upper and lower end of left fibula, initial encounter for closed fracture Activity Restrictions/Additional Instructions: You were evaluated in the ED today for an ankle injury. Your x-ray does show a minimally displaced fibular fracture. You have been fitted in a splint. Please keep the splint on and avoid getting it wet. Take ibuprofen, Tylenol for pain. Please keep the injury elevated. You have been provided crutches to get around. Please follow-up with [facility] at [phone] as soon as possible for further evaluation. Return to the ED if you have worsening symptoms, numbness, tingling, weakness. Prescriptions: No Action trazodone 50 mg Tablet 25 mg PO BEDTIME PRN (Reason: Sleep) escitalopram oxalate [Lexapro] 20 mg Tablet 20 mg PO DAILY ibuprofen [Advil] 100 mg Tablet 100 mg PO PRN PRN (Reason: Pain, Mild) loratadine [Claritin] 10 mg Tablet 10 mg PO DAILY PRN (Reason: allergies) Referrals: Elina Leslie MD [Primary Care Provider] - Stand Alone Forms: Patient Portal/API ED Sign-out <Garrison Smart MD - Last Filed: 12/16/23 11:42> Cosign ED Attending Teodoroature Attestation: I was immediately available in the department for consultation. ?This documentation has been reviewed and I agree with assessment and plan. Supervised by Garrison Smart MD
[2023-12-12 14:17] VITALS: BP 178/81; PULSE 63; RESP 18; O2SAT 97
== END 2023-12-12 14:20 | disposition home or self-care (01) ==
PROVIDERS: Emergency Provider Student in an Organized Health Care Education/Training Program; PCP Family Medicine
DX: S82.832A Other fracture of upper and lower end of left fibula, initial encounter for closed fracture (principal); X50.1XXA Overexertion from prolonged static or awkward postures, initial encounter
CPT/HCPCS: 29515; 73610; 99283; 99284

== ENCOUNTER → 2024-12-13 08:34 | Outpatient (CLI) | payer MEDICARE, OTHER, SELFPAY ==
--- NOTE | 2024-12-13 08:35 | DI.MG.S_ITS ---
MM screening mammo BI: 12/13/2024. BI-RADS: 1 CLINICAL: 73-year old female for bilateral screening mammogram. Tyrer-Cuzick lifetime risk of 7.8%. Current reported family history of breast cancer: maternal grandmother and mother. PRIOR EXAMS 03/02/2023, 12/16/2021, 11/12/2020, 10/09/2018. MAMMOGRAPHY TECHNIQUE: 2D and 3D (tomosynthesis) digital mammographic views obtained, with additional images as needed for full coverage. Current study was also evaluated with a Computer Aided Detection (CAD) system. DENSITY C. The breasts are heterogeneously dense, which may obscure small masses. MAMMOGRAPHY FINDINGS Bilateral: No suspicious mass, asymmetry, microcalcification, or other abnormality seen. IMPRESSION: * No evidence of malignancy. RECOMMENDATIONS Bilateral * Annual screening mammography. OVERALL ASSESSMENT CATEGORY BI-RADS-1: Negative. The [employer] recommends annual screening mammography beginning at age 40 for women with average risk of breast cancer. ELECTRONICALLY SIGNED: Zion Andres M.D. on 12/13/2024 at 01:03:12 PM PT Interpreting Station ID: [id number]
== END ==
PROVIDERS: PCP Family Medicine; Referring Provider Family Medicine; Visit Provider Family Medicine
DX: Z12.31 Encounter for screening mammogram for malignant neoplasm of breast (principal); Z80.3 Family history of malignant neoplasm of breast; R92.333 Mammographic heterogeneous density, bilateral breasts
CPT/HCPCS: 77063; 77067

== ENCOUNTER 2024-12-13 13:34 | Emergency (ER) | payer MEDICARE, OTHER, SELFPAY ==
[2024-12-13] VITALS (33 sets, daily range): BP systolic 110–156; BP diastolic 57–77; PULSE 80–110; RESP 14–29; TEMP 36.6; O2SAT 92–97; BMI 24.0
--- NOTE | 2024-12-13 13:47 | ED_ITS ---
HPI - Allergic Reaction General Chief complaint: Allergic Reaction Stated complaint: bee sting allergic reaction Time Seen by Provider: 12/13/24 13:44 History of Present Illness HPI narrative: 73-year-old female history of hypertension dyslipidemia was working in the garden when she got stung by yellow jacket came in broken out in hives all over and feels her throat is tight just prior to arrival here at 1pm. Other than what is stated 14 point review of system is negative. Related Data Home Medications ?Medication ?Instructions ?Recorded ?Confirmed escitalopram oxalate 20 mg tablet 20 mg PO DAILY 06/0501/14/20 (Lexapro) ibuprofen 100 mg tablet (Advil) 100 mg PO PRN PRN Pain , Mild 06/05/19 01/14/20 trazodone 50 mg tablet 25 mg PO BEDTIME PRN Sleep 1 08/06/18 01/14/20 loratadine 10 mg tablet (Claritin) 10 mg PO DAILY PRN allergies 01/14/20 01/14/20 Previous Rx's ?Medication ?Instructions ?Recorded epinephrine 0.3 mg/0.3 mL 0.3 mg (0.3 mL) IM Q5-15M UT N 12/13/24 injection, auto-injector anaphylaxis #2 ea Allergies Allergy/AdvReac Type Severity Reaction Status Date / Time No Known Drug Allergies Allergy Verified 12/12/23 11:47 Review of Systems Review of Systems ROS Unobtainable: All systems reviewed & are unremarkable except as noted in HPI and below Patient History Social History household members: spouse alcohol intake: current alcohol intake frequency: 0-2 drinks per day Exam Narrative Exam Narrative: GENERAL: [73] year old patient appears stated age. Well-developed patient, in mild distress. HEAD: Atraumatic. Normocephalic. EYES: Pupils equal round and reactive. Extraocular motions intact. No scleral icterus. No injection or drainage. ENT: Nose without bleeding, purulent drainage. Throat without erythema, tonsillar hypertrophy or exudate. Airway patent. NECK: Trachea midline. Non tender CARDIOVASCULAR: Regular rate and rhythm without murmurs, gallops, or rubs. RESPIRATORY: Clear to auscultation. Breath sounds equal bilaterally. No wheezes, rales, or rhonchi. GASTROINTESTINAL: Abdomen soft, non-tender, nondistended. EXTREMITIES: No edema or joint tenderness. BACK: Nontender without deformity or crepitance. No flank tenderness. NEURO: AOx3. GCS 15 nonfocal neuro exam SKIN: No rash or erythema of visible areas MDM - Allergic Reaction MDM Narrative Medical decision making narrative: Vital signs, nurse triage note, medication list, previous ER visits, and all imaging study reviewed. Patient given epi 0.3 mg IM, Pepcid, Solu-Medrol, and Benadryl. Hives this since resolved she is no longer having any throat tightness and feels much better on reexamination. Differential diagnosis includes allergic reaction, impending airway issue, shock. DC home on EpiPen rx. Discharge Plan Departure Patient Disposition: Home Clinical Impression: Allergic reaction Qualifiers: Encounter type: initial encounter Qualified Code(s): T78.40XA - Allergy, u nspecified, initial encounter Activity Restrictions/Additional Instructions: Return with new or worsening symptoms. Take your medicine as needed. Prescriptions: New epinephrine 0.3 mg/0.3 mL auto-injector 0.3 mg IM Q5-15M PRN (Reason: anaphylaxis) Qty: 2 0RF Rx Instructions: do not exceed 3 doses per episode No Action trazodone 50 mg Tablet 25 mg PO BEDTIME PRN (Reason: Sleep) escitalopram oxalate [Lexapro] 20 mg Tablet 20 mg PO DAILY ibuprofen [Advil] 100 mg Tablet 100 mg PO PRN PRN (Reason: Pain, Mild) loratadine [Claritin] 10 mg Tablet 10 mg PO DAILY PRN (Reason: allergies) Referrals: Elina Leslie MD [Primary Care Provider, Family Practice] Stand Alone Forms: Patient Portal/API
[2024-12-13] MEDS: FAMOTIDINE 20 MG/2 ML VIAL IV (13:49)
[2024-12-13] MEDS: EPINEPHrine 1 MG/ML 0.3 MG IM (13:49)
[2024-12-13] MEDS: diphenhydrAMINE 50 MG/ML VIAL IV (13:49)
[2024-12-13] MEDS: methylPREDNISolone 125 MG/2 ML VIAL IV (13:49)
--- NOTE | 2024-12-13 14:03 | PC.NURSE ---
Addendum entered by Ebony Flores R.N. 12/13/24 15:18: Pt states that she feel much better. Angioedema, Rash and hives have resolved. Denies sob. Original Note: 1353 Pt arrived to ED after being stung by yellow jacket between eyebrows and experiencing anaphylaxis. Systemic red itchy rash with hives on body, neck and face. Angioedema around mouth. Pt reports feeling like tongue swelling and tachypneic. Inspiratory and expiratory wheezes upon auscultation. O2 sat 97% on RA and RR 30. Airway patent and pt able to appropriately manage secretions. Dr Quintana at bedside and verbal order for 0.3mg of IM epi. A&Ox4. 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
== END 2024-12-13 16:20 | disposition home or self-care (01) ==
PROVIDERS: Emergency Provider Family Medicine; PCP Family Medicine
DX: T63.441A Toxic effect of venom of bees, accidental (unintentional), initial encounter (principal)
CPT/HCPCS: 96372; 96374; 96375; 99284; J0171; J1200; J2919